=== PATIENT | male | born 1950 | race Caucasian/White ===

== ENCOUNTER 2017-12-27 21:23 | Emergency (ER) | payer MEDICARE, BC, OTHER | END 2017-12-27 22:18 | disposition home or self-care (01) | LOC: FTE 21:23 | DX: S63.617A Unspecified sprain of left little finger, initial encounter (principal); S61.210A Laceration without foreign body of right index finger without damage to nail, initial encounter; F17.210 Nicotine dependence, cigarettes, uncomplicated; W26.8XXA Contact with other sharp object(s), not elsewhere classified, initial encounter; Y92.9 Unspecified place or not applicable | CPT/HCPCS: 29130; 99282-25 ==